=== PATIENT | female | born 1965 | race Caucasian/White ===

== ENCOUNTER 2017-05-28 06:20 | Emergency (ER) | payer OTHER ==
[~2017-05-28 06:20] MED LIST: ASPIR 8181 MG PO; METFORMIN HCL500 MG PO; OMEPRAZOLE DR20 M1 PO; SIMVASTATIN20 M1 PO
[2017-05-28 06:28] VITALS: BP 143/94
[2017-05-28 07:13] LABS: BASOPHIL % 0.7 % (0-2); PLATELET COUNT 344 x10^3mcL (130-400); RED CELL DISTRIBUTION WIDTH 13.7 % (11.5-14.5)
[2017-05-28 07:28] LABS: CALCIUM 8.4 mg/dL (8.5-10.1); CARBON DIOXIDE 24.9 mmol/L (21-32); CREATININE SERUM 1.1 mg/dL (0.6-1.0); POTASSIUM SERUM 3.7 mmol/L (3.5-5.1)
[2017-05-28 07:32] LABS: ALBUMIN 3.4 g/dL (3.4-5.0); BILIRUBIN TOTAL 0.41 mg/dL (0.20-1.00); TOTAL PROTEIN, SERUM 7.5 g/dL (6.4-8.2)
== END 2017-05-28 08:18 | disposition home or self-care (01) ==
LOC: ED 06:20
PROVIDERS: Emergency Medicine
DX: K80.50 Calculus of bile duct without cholangitis or cholecystitis without obstruction (principal); I10 Essential (primary) hypertension; E11.9 Type 2 diabetes mellitus without complications; Z79.84 Long term (current) use of oral hypoglycemic drugs; Z79.899 Other long term (current) drug therapy
CPT/HCPCS: 83880; J1885

== ENCOUNTER 2017-06-26 10:02 | Emergency (ER) | payer OTHER ==
[~2017-06-26] VITALS: Ht 157.5 cm; Wt 69.8 kg
[2017-06-26 11:57] LABS: microscopic required? YES; urine erythrocyte TRACE (NEGATIVE)
[2017-06-26 13:24] VITALS: BP 110/64
== END 2017-06-26 13:24 | disposition home or self-care (01) ==
LOC: ED 10:02
PROVIDERS: Emergency Medicine
DX: M54.9 Dorsalgia, unspecified (principal); E11.9 Type 2 diabetes mellitus without complications; I10 Essential (primary) hypertension; E78.00 Pure hypercholesterolemia, unspecified
CPT/HCPCS: J1100; J1885